=== PATIENT | female | born 1955 | race Caucasian/White ===

== ENCOUNTER → 2016-07-11 | Outpatient (CLI) | payer OTHER | LOC: RAD 04:49 | DX: Z12.31 Encounter for screening mammogram for malignant neoplasm of breast (principal) ==

== ENCOUNTER → 2019-03-02 | Outpatient (CLI) | payer OTHER ==
[~2019-03-02] VITALS: Ht 165.1 cm; Wt 70.3 kg
[~2019-03-02] MED LIST: ASPIR-LOW81 MG PO; CALCIUM500 MG PO; MULTI VITAMIN1 EACH PO; PROTONIX40 M1 PO
--- NOTE | 2019-03-03 20:06 | PATH ---
[facility] [place] [address] PATHOLOGY RPT PROCEDURE Name: CECILIO GLYNN Room #: REG [facility] M.R.#: [id number] Admission: 03/02/19 Date of : 55 Discharge: Report #: [id number] Path Case #: [id number] [facility] Accession Number: [id number] . 01 Material submitted: . PART A: colon - POLYP AT ASCENDING COLON. Modifiers: ascending PART B: colon - POLYP AT DESCENDING COLON X2. Modifiers: descending PART C: colon - POLYP AT SIGMOID X2. Modifiers: sigmoid . 01 Clinical history: . Hx of polyps . 02 Diagnosis: A. Polyp, at ascending colon, endoscopic biopsy: - Tubular adenoma. - Negative for high-grade dysplasia. . B. Polyp x2, descending colon, endoscopic biopsy: - Multiple fragments showing hyperplastic polyps. - Negative for dysplasia. . C. Polyp x2, at sigmoid, endoscopic biopsy: - Tubular adenoma x1; negative for high-grade dysplasia. - Cauterized hyperplastic polyp x1; negative for dysplasia. . (IUV:loretta; 03/03/2019) MBR 03/03/2019 1332 Local . 02 Electronically signed: . Joellen Wolf MD, Pathologist NPI- [id number] . 01 Gross description: . A. Received in formalin labeled "Cecilio Glynn, polyp at ascending colon," are 2 segments of woodruff soft tissue measuring 0.7 x 0.2 x 0.1 cm in aggregate dimensions and ranging from 0.3 to 0.4 cm in maximum dimension. The specimen is submitted entirely in cassette A1. . B. Received in formalin labeled "Cecilio Glynn, polyp at descending colon," and additionally labeled on the requisition as "x2," are 3 segments of woodruff soft tissue measuring 0.9 x 0.8 x 0.3 cm in aggregate dimensions and ranging from 0.3 to 0.6 cm in maximum dimension. The specimen is submitted entirely in cassette B1. . C. Received in formalin labeled "Cecilio Glynn, polyp at sigmoid," and additionally labeled on the requisition as "x2," is a 0.7 x 0.4 x 0.4 cm polypoid piece of woodruff soft tissue. The margin is inked [place] [address] PATHOLOGY RPT PROCEDURE Name: CECILIO GLYNN Room #: REG CLCarisa James#: [id number] Admission: 03/02/19 Date of : 55 Discharge: Report #: [id number] Path Case #: [id number] sectioned perpendicular to the margin and submitted entirely in cassette C1. Additionally received in the same container is a single segment of woodruff soft tissue measuring 0.7 cm in maximum dimension. The specimen is submitted entirely in cassette C2. (TSD; 03/02/2019) TOB/TOB 03/02/2019 1949 Local . 02 Pathologist provided ICD-10: D12.2, K63.5, D12.5 . 02 CPT . 898914, 122039, 951383 Specimen Comment: A courtesy copy of this report has been sent to [phone], [phone] Specimen Comment: [id number], Specimen Comment: Report sent to ,DR COLLAZO / DR LEAL Performed at: [address] [facility], [place] [id number] MD Boom Chatman MD Phone: [phone] Performed at: [address] [facility] [id number] MD Joellen Wolf MD Phone: [phone]
--- NOTE | 2019-03-07 11:57 | P ---
[facility] [place] [address] PROCEDURE REPORT Name: CECILIO SCOTT [facility] [id number] Admission: 03/02/19 Attend Phys: Mukesh Lopez Discharge: Date of : 55 Report #: [id number] THIS REPORT FOR: //name// CC: Mukesh Briones DATE OF SERVICE: 03/02/2019 PROCEDURE PERFORMED: Colonoscopy with polypectomies. HISTORY OF PRESENT ILLNESS: The patient is a 63-year-old female with history of colon polyps, last colonoscopy 6 years ago. She denies any symptoms at this time. No family history of colon cancer. DESCRIPTION OF PROCEDURE: The risks and benefits of the procedure were explained to the patient, those risks including but not limited to bleeding, perforation and the risk of sedation. She understood these risks and gave informed consent. Sedation was given using propofol per anesthesia. Next, a digital rectal exam was initially performed, which was normal. Next, using a standard Olympus colonoscope, the scope was placed in the patient's anus and advanced under direct vision to the cecum. The overall prep was excellent. Cecum and ileocecal valve were normal in appearance. In the ascending colon, a 4-mm sessile polyp was noted. This was removed with cold forceps, otherwise normal. Transverse colon was normal. In the descending colon, 2 polyps were noted. The smaller was 4 mm and removed by cold forceps, the larger was 6 mm and removed by snare cautery. In the sigmoid colon, there were two 5-6 mm sessile polyps, both removed by snare cautery. The rectal mucosa was normal. On retroflexion, no abnormalities were noted. The scope was then withdrawn and the procedure terminated. The patient tolerated the procedure well. IMPRESSION: 1. Small colonic polyps as described above. 2. Otherwise, normal colonoscopy. RECOMMENDATIONS: 1. Await biopsy results. 2. Repeat colonoscopy in 5 years. Thank you for allowing me to participate in her care. <ELECTRONICALLY SIGNED> By: Mukesh Rouse MD 03/07/19 1157 [id number] Mukesh Rouse MD /nt
== END | disposition home or self-care (01) ==
LOC: GI 07:23
DX: Z12.11 Encounter for screening for malignant neoplasm of colon (principal); Z86.010 Personal history of colon polyps; D12.2 Benign neoplasm of ascending colon; D12.5 Benign neoplasm of sigmoid colon; K21.9 Gastro-esophageal reflux disease without esophagitis; Z98.890 Other specified postprocedural states; Z79.899 Other long term (current) drug therapy; Z87.891 Personal history of nicotine dependence; Z79.82 Long term (current) use of aspirin; Z90.710 Acquired absence of both cervix and uterus
CPT/HCPCS: 62110; 62900